=== PATIENT | female | born 1970 | race Caucasian/White ===

== ENCOUNTER 2024-12-27 08:32 | Outpatient (CLI) | payer OTHER, SELFPAY ==
--- NOTE | 2024-12-27 08:38 | MM_ITS ---
WS: [id number] Bilateral screening 3D tomosynthesis digital mammogram, 12/27/2024 9:00 AM Clinical Data: SCREENING Comparison: 03/04/2022 Findings: No spiculated masses or clustered calcifications are seen. There are no secondary signs of carcinoma. There are lymph nodes in both axilla. MM/MM scr BI tomosynthesis [id number] Impression: Negative bilateral mammogram unchanged. Recommend annual screening mammograms. BIRADS: 1 - Negative FOLLOW UP: 1 Year Follow-up DENSITY: The breasts are heterogeneously dense, which may obscure small masses. The CAD color checker was used
== END 2024-12-27 08:33 | disposition home or self-care (01) ==
LOC: RAD 08:33
PROVIDERS: PCP Family Medicine; Visit Provider Family Medicine
DX: Z12.31 Encounter for screening mammogram for malignant neoplasm of breast (principal); R92.333 Mammographic heterogeneous density, bilateral breasts; N64.89 Other specified disorders of breast
CPT/HCPCS: 77063; 77067

== ENCOUNTER 2025-01-14 08:35 | Day surgery (SDC) | payer OTHER, SELFPAY ==
[2025-01-14 08:53] VITALS: BMI 33.9
--- NOTE | 2025-01-14 09:18 | ANES.PREANE2 ---
Pre-Anesthetic Assessment Height/Weight: Height 1.68 m Weight 95.254 kg Operation Date: 01/14/25 10:15 Proposed Procedures p Colonoscopy 34155 G0121 Z12.11(Not Applicable) - Baldomero Ferreira MD Familial anesthetic complications: none Was Beta Monica taken within 24 hours: N/A Was Clonidine taken within 24 hours: N/A Last intake: Intake Last Liquid Date 01/13/25 Last Liquid Time 22:00 Last Solid Date 01/12/25 Last Solid Time 20:00 Social No alcohol and No tobacco Exam alert and oriented x 3 Airway Submandibular: within normal limits Cervical ROM: within normal limits Mallampati: Class II Dentition: full History/ROS No significant complaints Pulmonary None reported CV/HEM mitral valve prolapse-no issues None reported Hepatic None reported GI None reported Metabolic None reported Musc/skel None reported Neuropsych None reported Anesthetic Plan ASA status: 1 Anesthesia: Anesthesia Evaluation and MAC Risk of > 500 ml blood loss (7ml/kg in children): No Medications/Allergies Home Medications ?Medication ?Instructions ?Recorded ?Confirmed ?Last Taken ?Type No Known Home Medications 01/13/25 01/13/25 Unknown History Allergies Allergy/AdvReac Type Severity Reaction Status Date / Time No Known Allergies Allergy Verified 08/03/24 15:33 [facility] Anesthesia Family History (Updated 12/25/24 @ 08:56 by Daniella Silvestre LPN) Father Lymphoma Social History Smoking and tobacco/nicotine status: former use of tobacco/nicotine
--- NOTE | 2025-01-14 09:49 | W.PM.OPSUD ---
Surgery/Procedure H&P Update DATE OF PROCEDURE: January 14, 2025 DATE H&P PERFORMED: 12/25/24 H&P UPDATE INFORMATION: I have reviewed H&P completed within last 30 days, I have examined patient prior to procedure, No changes to prior documentation and Risks and benefits of the procedure reviewed PLANNED PROCEDURE: Operation Date: 01/14/25 10:15 Proposed Procedures p Colonoscopy [id number] G0121 Z12.11(Not Applicable) - Baldomero Ferreira MD
[2025-01-14 10:27] VITALS: BP 89/60; PULSE 72; RESP 18; TEMP 36.2; O2SAT 96
[2025-01-14 10:30] VITALS: BP 96/61; PULSE 70; RESP 18; O2SAT 93
[2025-01-14 10:40] VITALS: BP 120/75; PULSE 78; RESP 18; O2SAT 97
[2025-01-14 10:45] VITALS: BP 102/68; PULSE 69; RESP 18; O2SAT 94
--- NOTE | 2025-01-14 11:15 | ANE.PACU2 ---
Inpatient post-anesthesia follow up: Airway intact: Yes Vital signs: Temperature 97.1 F Pulse Rate 69 Respiratory Rate 18 Blood Pressure 102/68 Pulse Oximetry 94 Oxygen Delivery Me thod Room Air Oxygen Flow Rate Fraction of Inspir ed Oxygen Hydration adequate: Yes Nausea and vomiting: No Pain level: 1 Mental status: Baseline
== END 2025-01-14 11:15 | disposition home or self-care (01) ==
PROVIDERS: PCP Family Medicine; Visit Provider Student in an Organized Health Care Education/Training Program
PROC: 0DJD8ZZ Inspection of Lower Intestinal Tract, Via Natural or Artificial Opening Endoscopic (ICD-10-PCS; CPT 45378; principal; 2025-01-14 10:15)
DX: Z12.11 Encounter for screening for malignant neoplasm of colon (principal); Z80.7 Family history of other malignant neoplasms of lymphoid, hematopoietic and related tissues; Z87.891 Personal history of nicotine dependence
CPT/HCPCS: 45378; J2704; J7030